=== PATIENT | male | born 1975 | race Hispanic/Latino ===

== ENCOUNTER 2022-05-01 12:04 | Emergency (ER) | payer OTHER ==
[~2022-05-01] VITALS: Ht 167.6 cm; Wt 84.0 kg
[2022-05-01] MEDS ORDERED: IBUPROFEN600 MG PO (14:37)
[2022-05-01 14:41] VITALS: BP 111/75
== END 2022-05-01 14:56 | disposition home or self-care (01) | DRG 563 ==
LOC: ED 12:04
DX: M23.92 Unspecified internal derangement of left knee (principal)